=== PATIENT | female | born 1955 | race Caucasian/White ===

== ENCOUNTER 2017-08-29 17:07 | Emergency (ER) | payer MEDICAID ==
[~2017-08-29] VITALS: Ht 152.4 cm; Wt 52.2 kg
[~2017-08-29 17:07] MED LIST: ARIP5TAB13 PO; BUTA1CAP39 PO; CYCL10TA9 PO; PREG150C PO; THRYOID
[2017-08-29] MEDS ORDERED: TRAM50TA2 (17:28)
[2017-08-29] MEDS ORDERED: TRAZ150T72 (17:28)
[2017-08-29] MEDS ORDERED: LEVO100T7 (17:28)
[2017-08-29] MEDS ORDERED: diphenhydrAMINE 50 MG/ML INJ (BENADRYL) ONE (17:28)
[2017-08-29] MEDS ORDERED: BACL10TA (17:28)
[2017-08-29] MEDS ORDERED: ALPR0.5T7 (17:28)
[2017-08-29] MEDS ORDERED: PRD20T PO (17:56)
--- NOTE | 2017-08-29 17:56 | ED General ---
General Chief Complaint: Allergic Reaction Stated Complaint: RASH Nursing Triage Note: States she started having hives after having flu shot. Has been taking benadryl but it is no longer relieving sx. no soa or throat swelling Nursing Sepsis Screen: No Definite Risk Source of Information: Patient Exam Limitations: No Limitations History of Present Illness Time Seen by Provider: 17:52 Initial Comments To ER with reports of an urticarial rash diffusely that started in the left arm. On Friday the she received an influenza injection in her left arm. This started just after that. She's been very itchy and taking Benadryl home with some temporary relief but the rash and itching recurs. No wheezing, no shortness of breath, no airway compromise. No GI symptoms. Timing/Duration: 2-3 Days Severity: Moderate Allergies and Home Medications Allergies Coded Allergies: influenza virus vaccine tvs [id number](65 years up) (Verified Allergy, Intermediate, 08/29/17) rash-hives vaccine adjuvant emulsion MF59C.1 (Verified Allergy, Intermediate, ) rash-hives NSAIDS (Non-Steroidal Anti-Inflamma (Unverified Allergy, Unknown, 11/03/14 ) aspirin (Unverified Allergy, Unknown, 11/03/14) morphine (Unverified Allergy, Unknown, 11/03/14) Home Medications Alprazolam 0.5 Mg Tablet, (Reported) Aripiprazole 5 Mg Tablet, 5 MG PO, (Reported) Baclofen 10 Mg Tablet, (Reported) Butalb/Acetaminophen/Caffeine 1 Each Capsule, 1 EACH PO Q6H PRN for HEADACHE, # 10 Ref 0 Prescribed by: LULÚ ANDREWS on 11/03/14 1548 Levothyroxine Sodium 100 Mcg Tablet, (Reported) Prednisone 20 Mg Tab, 40 MG PO DAILY, #6 Prescribed by: RIGOBERTO HANSEN on 08/29/17 1756 Pregabalin 150 Mg Capsule, 150 MG PO BID, (Reported) Tramadol HCl 50 Mg Tablet, (Reported) Trazodone HCl 150 Mg Tablet, (Reported) [Thryoid] , (Reported) Constitutional: see HPI EENTM: see HPI Respiratory: no symptoms reported Cardiovascular: no symptoms reported Genitourinary: no symptoms reported Musculoskeletal: no symptoms reported Skin: see HPI Psychiatric/Neurological: No Symptoms Reported Hematologic/Lymphatic: No Symptoms Reported Past Rkzmblt-Wdwmbv-Ulbrwz Hx Patient Social History Alcohol Use: Occasionally Uses Recreational Drug Use: No Smoking Status: Current Everyday Smoker Type Used: Cigarettes 2nd Hand Smoke Exposure: No Recent Foreign Travel: No Contact w/Someone Who Travel: No Recent Infectious Disease Expo: No Physical Abuse: No Sexual Abuse: No Mistreated: No Fear: No Immunizations Up To Date Tetanus Booster (TDap): More than 5yrs Date of Influenza Vaccine: Aug 26, 2017 Seasonal Allergies Seasonal Allergies: Yes Surgeries History of Surgeries: Yes (COLON SURG) Surgeries: Hysterectomy, Rectal, Tonsillectomy Respiratory Respiratory Disorders: Chronic Bronchitis Cardiovascular History of Cardiac Disorders: No Neurological History of Neurological Disord: Yes Neurological Disorders: Headaches /Migraines 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 History: Hysterectomy Gastrointestinal History of Gastrointestinal Di: No Gastrointestinal Disorders: Abdominal Hernia, Hemorrhoids, Irritable Bowel Musculoskeletal History of Musculoskeletal Dis: Yes Musculoskeletal Disorders: Osteoporosis, Arthritis, Fibromyalgia Endocrine History of Endocrine Disorders: Yes Endocrine Disorders: Hypothyroidsim Cancer History of Cancer: No Psychosocial History of Psychiatric Problem: Yes Behavioral Health Disorders: Sleep Difficulties, Depression Suicide Risk Score: 0 Physical Exam Vital Signs Vital Sign - Last 12Hours 08/29/17 17:22 Temp 98.0 Pulse 72 Resp 18 B/P (MAP) 155/84 Pulse Ox 98 Capillary Refill : Less Than 3 Seconds General Appearance: No Apparent Distress, WD/WN Eyes: Bilateral Eye Normal Inspection, Bilateral Eye PERRL, Bilateral Eye EOMI HEENT: PERRL/EOMI, TMs Normal Neck: Full Range of Motion, Normal Inspection Respiratory: No Accessory Muscle Use, No Respiratory Distress Cardiovascular: Regular Rate, Rhythm, Normal Peripheral Pulses Gastrointestinal: Non Tender, Soft Neurologic/Psychiatric: Alert, Oriented x3, No Motor/Sensory Deficits Skin: Normal Color, Warm/Dry, Other (scattered erythematous welts down his legs , arms, torso.) Progress/Results/Core Measures Results/Orders My Orders Medications Given in ED Vital Signs/I&O Blood Pressure Mean: 107 Departure Impression Impression: Primary Impression: Allergic response Disposition: 01 HOME, SELF-CARE Condition: Stable Departure-Patient Inst. Decision time for Depature: 17:55 Referrals: [facility] (PCP) Primary Care Physician AUSTIN DAVID (Family) Primary Care Physician Patient Instructions: Drug Allergy Add. Discharge Instructions: 1. Continue to use Benadryl every 4-6 hours as needed for itching 2. Return to ER for any concerns 3. Expect improvement in 1-2 days after starting steroids. All discharge instructions reviewed with patient and/or family. Voiced understanding. Scripts Prednisone (Prednisone) 20 Mg Tab 40 MG PO DAILY, #6 TAB Prov: RIGOBERTO HANSEN APRN 08/29/17 RIGOBERTO HANSEN APRN Aug 29, 2017 17:56
[2017-08-29] MEDS ORDERED: predniSONE 20 MG TAB PO ONE ×2 (18:00)
[2017-08-29] MEDS ORDERED: LORazepam INJ 2 MG/ML (ATIVAN) VIAL IVP ONE (18:00)
[2017-08-29 18:15] VITALS: BP 136/72
== END 2017-08-29 18:15 | disposition home or self-care (01) ==
LOC: EDUNIT# 17:07 → ER 17:10
DX: T78.40XA Allergy, unspecified, initial encounter (principal); M81.0 Age-related osteoporosis without current pathological fracture; E03.9 Hypothyroidism, unspecified; F32.9 Major depressive disorder, single episode, unspecified; G43.909 Migraine, unspecified, not intractable, without status migrainosus; F17.210 Nicotine dependence, cigarettes, uncomplicated; Z90.710 Acquired absence of both cervix and uterus; Z87.19 Personal history of other diseases of the digestive system; Z90.89 Acquired absence of other organs; Z87.09 Personal history of other diseases of the respiratory system